=== PATIENT | male | born 1995 | race Caucasian/White ===

== ENCOUNTER 2023-11-13 20:29 | Emergency (ER) | payer SELFPAY ==
[~2023-11-13] VITALS: Ht 182.9 cm; Wt 92.0 kg
[2023-11-13 20:37] VITALS: TEMP 99.8; O2SAT 99
[2023-11-13] MEDS: HALOPERIDOL LACTATE 5MG/ML VIAL IM STA (22:11)
[2023-11-13] MEDS: DIPHENHYDRAMINE 50MG/ML VIAL IM STA (22:11)
[2023-11-13 22:34] LABS: CHLORIDE 110 mEq/L (98-107); POTASSIUM 3.2 mEq/L (3.5-5.1); SODIUM 144 mEq/L (136-145)
[2023-11-13 22:35] LABS: CALCIUM 9.5 mg/dL (8.7-10.4); CARBON DIOXIDE 23 mEq/L (21-32)
[2023-11-13 22:39] LABS: BASOPHILS % 0.3 % (0.0-2.0); HEMATOCRIT. 49.3 % (42.0-52.0); HEMOGLOBIN. 16.6 g/dL (14.0-18.0); LYMPHOCYTES % 16.8 % (20.0-50.0); MEAN CORPUSCULAR HEMOGLOBIN 30.4 pg (28.0-32.0); MEAN CORPUSCULAR HGB CONC 33.7 g/dL (31.0-37.0); MONOCYTES % 6.8 % (2.0-8.0); NEUTROPHILS % 76.1 % (40.0-76.0); PLATELET 249 x1000/uL (130-400); RED BLOOD CELL COUNT 5.48 mill/uL (4.7-6.1); RED CELL DISTRIBUTION WIDTH 13.1 % (11.6-14.6); WHITE BLOOD COUNT 10.5 x1000/uL (4.5-11.0)
[2023-11-13 22:40] LABS: CREATININE 0.9 mg/dL (0.6-1.3); GLUCOSE 117 mg/dL (70-105); UREA NITROGEN BLOOD 10 mg/dL (9-23)
[2023-11-13 22:49] LABS: ETHANOL BLOOD 285 mg/dL (<10)
[2023-11-14 03:06] VITALS: BP 138/82; PULSE 86; RESP 14
== END 2023-11-14 06:07 | disposition home or self-care (01) ==
LOC: ER 20:29
DX: T51.91XA Toxic effect of unspecified alcohol, accidental (unintentional), initial encounter (principal); R41.82 Altered mental status, unspecified; F19.90 Other psychoactive substance use, unspecified, uncomplicated; Y92.89 Other specified places as the place of occurrence of the external cause; Y90.9 Presence of alcohol in blood, level not specified
CPT/HCPCS: 80048; 80320; 85025; 36415; 96372; 99291; J1200; J1630; G0480